=== PATIENT | female | born 1970 | race Caucasian/White ===

== ENCOUNTER 2017-09-19 05:10 | Inpatient (IN) | payer BC, OTHER ==
[2017-09-15 18:04] VITALS: BMI 25.7
[2017-09-19] MEDS ORDERED: ONDANSETRON 4 MG/2 ML VIAL IVPUSH PRN ×2 (09:11→11:36)
--- NOTE | 2017-09-19 09:16 | HP ---
Past Medical History - Primary Care Physician PCP:: Singh Auguste - Admission Chief Complaint: irregular vaginal bleeding, pelvic pain, adenomyosis History of Present Illness: 47 yo f with hx of irregular vaginal bleeding amd pelvic pain and discomfort. treated previously with progestrone and EM ablation witjh no relif , still c/o vaginal spotting and bleeding during the month. sono consistant with adenomyosis , admitted for supracervical abdominal hysterectomy with bilateral salpingectomy. rba discussed with patient History Source: Patient Limitations to Obtaining History: No Limitations - Past Medical History ...: 2 ...Para: 2 - Past Surgical History Past Surgical History: Yes: Hx Myomectomy: No Hx Transabdominal Cerclage: No Additional Surgical History: hv of transvaginal sling for urinary incontinence - Smoking History Smoking history: Never smoked - Alcohol/Substance Use Hx Alcohol Use: Yes (SOCIALLY) - Social History Usual Living Arrangement: Yes: With Spouse History of Recent Travel: No Home Medications - Allergies Allergies/Adverse Reactions: Allergies Allergy/AdvReac Type Severity Reaction Status Date / Time Sulfa (Sulfonamide Allergy Intermediate Verified 09/19/17 08:02 Antibiotics) - Home Medications Home Medications: Ambulatory Orders NK [No Known Home Medication] 09/15/17 Review of Systems - Review of Systems Constitutional: reports: No Symptoms Eyes: reports: No Symptoms HENT: reports: No Symptoms Cardiovascular: reports: No Symptoms Respiratory: reports: No Symptoms Gastrointestinal: reports: Abdominal Pain, Bloating Genitourinary: reports: Vaginal Bleeding Breasts: reports: No Symptoms Reported Musculoskeletal: reports: No Symptoms Integumentary: reports: No Symptoms Neurological: reports: No Symptoms Endocrine: reports: No Symptoms Hematology/Lymphatic: reports: Excessive Bleeding Psychiatric: reports: No Symptoms Physical Exam-YARD SUPERVISOR Vital Signs: Vital Signs Temperature 98.4 F 09/19/17 07:59 Pulse Rate 68 09/19/17 07:59 Respiratory Rate 16 09/19/17 07:59 Blood Pressure 119/85 09/19/17 07:59 O2 Sat by Pulse Oximetry (%) Constitutional: Yes: Well Nourished, No Distress, Calm Eyes: Yes: WNL, Conjunctiva Clear, EOM Intact HENT: Yes: WNL, Atraumatic, Normocephalic Neck: Yes: WNL, Supple, Trachea Midline Cardiovascular: Yes: WNL, Regular Rate and Rhythm Respiratory: Yes: WNL, Regular, CTA Bilaterally Gastrointestinal: Yes: WNL ...Rectal Exam: Yes: WNL Renal/: Yes: WNL Pelvis: Yes: WNL External Genitalia: Yes: Normal Vaginal Exam: Yes: Normal Cervix: Yes: Normal Uterus: Yes: Enlarged (10 weeks), Tender Adnexa: Not Palpable: Left, Right Breast(s): Yes: WNL Musculoskeletal: Yes: WNL Extremities: Yes: WNL Edema: Yes Integumentary: Yes: WNL Neurological: Yes: WNL, Alert, Oriented ...Motor Strength: WNL Psychiatric: Yes: WNL, Alert, Oriented Problem List - Problem (1) Pelvic pain Code(s): R10.2 - PELVIC AND PERINEAL PAIN (2) Metrorrhagia Code(s): N92.1 - EXCESSIVE AND FREQUENT MENSTRUATION WITH IRREGULAR CYCLE (3) Adenomyosis Code(s): N80.0 - ENDOMETRIOSIS OF UTERUS Assessment/Plan supracervical abdominal hysterectomy, bilateral salpingectomy, possible oophorectomy
[2017-09-19] MEDS ORDERED: ONDANSETRON 4 MG/2 ML VIAL ONE (09:52)
[2017-09-19] MEDS ORDERED: LIDOCAINE HCL 2% JELLY (5 ML/TUBE) ONE (09:52)
[2017-09-19] MEDS ORDERED: KETOROLAC TROMETHAMINE 30 MG/1 ML VIAL ONE (09:52)
[2017-09-19] MEDS ORDERED: LIDOCAINE HCL/PF 2% SDV 5ML VIAL ONE (09:52)
[2017-09-19] MEDS ORDERED: DEXAMETHASONE SOD PHOSPHATE 4 MG/1 ML VIAL ONE (09:52)
[2017-09-19] MEDS ORDERED: ceFAZolin SODIUM 1 GM VIAL IVPB ONE (09:56)
[2017-09-19] MEDS ORDERED: ceFAZolin SODIUM 1 GM VIAL ONE (09:58)
[2017-09-19] MEDS ORDERED: CEFAZOLIN 1 GM/D5W 50 ML IVPB SCH (10:00)
[2017-09-19] MEDS ORDERED: ePHEDrine SULFATE 50 MG/1 ML AMPULE ONE (10:17)
[2017-09-19] MEDS ORDERED: NEOSTIGMINE METHYLSULFATE 0.5 MG/ML - 10 ML MDV ONE (11:03)
[2017-09-19] MEDS ORDERED: IBUPROFEN 800 MG/8 ML IJ IVPB PRN (11:36)
[2017-09-19] MEDS ORDERED: ELECTROLYTE-148 SOLN 1,000 ML IV SCH (11:45)
[2017-09-19] MEDS ORDERED: HYDROmorphone HCL CARPU-JECT 2 MG/1 ML DISP.SYRIN ONE (12:43)
[2017-09-19] MEDS: HYDROmorphone HCL CARPU-JECT 1 MG/1 ML DISP.SYRIN IVPUSH PRN ×2 (12:50→13:00)
--- NOTE | 2017-09-19 14:14 | OP ---
DATE OF OPERATION: 09/19/2017 PREOPERATIVE DIAGNOSES: Pelvic pain, metrorrhagia, and adenomyosis. POSTOPERATIVE DIAGNOSES: Pelvic pain, metrorrhagia, and adenomyosis. PROCEDURE: Supracervical abdominal hysterectomy, bilateral salpingectomy. SURGEON: Singh Auguste MD SYSTEMS TECHNOLOGIST: ESTIMATED BLOOD LOSS: 200 mL DESCRIPTION OF OPERATION: Patient was taken to the operating room, had adequate general anesthesia. Abdomen and perineum were prepped and draped x2. The abdominal skin incision was made. Abdominal wall was cut layer by layer. Anterior peritoneum was exposed and incised. Upon entering the abdominal cavity, lower uterine segment was identified and uterovesical fold of the peritoneum established and bladder was pushed down. The uterus was enlarged, approximately 10-12 weeks' size. Both tubes and ovaries were normal. No cul-de-sac adhesions. At this time, bowels were packed away with LigaSure cautery. Both round ligaments were grasped, cauterized, and cut, and bladder was further pushed down. Then, a hole was made into the broad ligament, and then, the tubo-ovarian pedicles were grasped with the bipolar LigaSure cautery, cauterized, and cut. Then, the tube with LigaSure cautery along the mesosalpinx was cauterized and cut, and both tubes were removed. There was evidence of previous tubal ligation with the tubes. Then, uterine artery was identified bilaterally, clamped with Jon clamp, cut, and the clamp replaced with 0 Vicryl suture bilaterally. At this time, paracervical area was clamped with Jon clamp and cut, and the clamp replaced with a 0 Vicryl suture. Then, the specimen was removed above the cervix, and then, the cervix was sutured with interrupted suture of 2-0 Vicryl. Then, there was some bleeding oozing from underneath the bladder flap. These areas were identified, clamped with a right angle clamp, and tied, and hemostasis was established. Then, cervix was sutured with interrupted suture of 0 Vicryl, and hemostasis was established. Reperitonealization of the pelvic floor was done, and the pelvic cavity several times irrigated. No active bleeding was seen. All the lap pad, sponge, and instrument counts were correct. Then, the peritoneum was closed with 0 Vicryl continuous suture. Muscles were brought together with interrupted suture of 0 Vicryl. Fascia was closed with 0 Vicryl continuous suture, subcutaneous fat with interrupted suture of 0 Vicryl, and the skin was closed with 4-0 Biosyn subcuticular suture. Patient tolerated procedure well, left the OR in good condition. Kevin [id number]
[2017-09-19] MEDS: oxyCODONE HCL 5 MG TABLET PO PRN (18:45)
[2017-09-19] MEDS: CEFAZOLIN 1 GM/D5W 50 ML IVPB SCH (20:04)
[2017-09-20] MEDS: oxyCODONE HCL 5 MG TABLET PO PRN ×3 (01:55→13:31)
[2017-09-20] MEDS: IBUPROFEN 600 MG TABLET (FP) PO PRN ×4 (01:55→21:31)
[2017-09-20 08:41] LABS: MCH 31.5 pg (25.7-33.7); MCHC 33.8 g/dl (32.0-36.0); MEAN CELL VOLUME 93.3 fl (80-96); MEAN PLT VOLUME 8.7 fl (7.5-11.1); PLATELET COUNT 153 K/MM3 (134-434); RDW 12.3 % (11.6-15.6)
--- NOTE | 2017-09-20 08:50 | PN ---
Progress Note (short form) - Note Progress Note: pod1 has low abdominal pain CBC, BMP 09/20/17 07:35 Last Vital Signs Temp Pulse Resp BP Pulse Ox 97.8 F 75 18 104/50 100 09/20/17 02:00 09/20/17 02:00 09/20/17 02:00 09/20/17 02:00 09/19/17 14:04 abdomen soft, no distension , no cva incision dry, clean no calf tenderness no vaginal bleeding Knox clear urine plan ambulate, advance diet pain management Problem List - Problems (1) Pelvic pain Code(s): R10.2 - PELVIC AND PERINEAL PAIN (2) Metrorrhagia Code(s): N92.1 - EXCESSIVE AND FREQUENT MENSTRUATION WITH IRREGULAR CYCLE (3) Adenomyosis Code(s): N80.0 - ENDOMETRIOSIS OF UTERUS
[2017-09-20] MEDS ORDERED: PANTOPRAZOLE 40 MG TABLET (FP) PO ONE (08:54)
[2017-09-20] MEDS: SIMETHICONE 80 MG TAB.CHEW (FP) PO PRN ×3 (09:08→18:29)
[2017-09-20] MEDS: CEFAZOLIN 1 GM/D5W 50 ML IVPB SCH (09:09)
[2017-09-20] MEDS: ENOXAPARIN NA (PORCINE) 40 MG/0.4 ML DISP.SYRIN SQ SCH (09:09)
--- NOTE | 2017-09-20 11:00 | PN ---
Progress Note (short form) - Note Progress Note: Post op day#1.S/P CHILANGO with BSO under GA with bilateral TAP block uneventful Patient stable and was on Dilaudid DOUGH MIXER OPERATOR for pain management.Pain score 3-4/10 so DOUGH MIXER OPERATOR is DC and patient put on PRN pain medication.No any anesthesia related problem.Patient DC from the anesthesia care.
--- NOTE | 2017-09-20 16:04 | PATH ---
Surgical Pathology Report Patient Name: GERTRUDE HURT [facility]. Rec. #: [id number] /Age/Gender: 1970 (Age: 47) / F Account: [id number] Location: [facility] OBS/GENERAL EDUCATION INSTRUCTOR Taken: 09/19/2017 Received: 09/19/2017 Reported: 09/20/2017 Physicians: Singh Auguste M.D. Specimen(s) Received UTERUS AND BILATERAL FALLOPIAN TUBES Clinical History Irregular vaginal bleeding, adenomyosis, pelvic pain Final Diagnosis UTERUS AND BILATERAL FALLOPIAN TUBES, SUPRACERVICAL HYSTERECTOMY AND BILATERAL SALPINGECTOMY: UTERUS, 222 GRAMS, WITH ADENOMYOSIS AND PROLIFERATIVE ENDOMETRIUM. BENIGN BILATERAL FALLOPIAN TUBES STATUS POST TUBAL LIGATION PRESENT. Comment: Also see [id number]. Electronically Signed Osvaldo Mendoza M.D. Gross Description Received in formalin labeled "uterus and bilateral fallopian tubes," is a 222 g supracervically amputated uterus with bilateral fallopian tubes attached. The specimen measures 10.5 cm from superior to inferior, 7.4 cm from left to right and 5.8 cm from anterior to posterior. The serosa is cerna-pink with focal small subserosal nodules. The endometrial cavity measures 7.4 cm in length and 3.7 cm from cornu to cornu. The endometrium is cerna-red and averages 0.3 cm in thickness. The myometrium is cerna-pink with whorled architecture and multifocal pinpoint hemorrhagic cysts, consistent with adenomyosis. The myometrium measures up to 2.8 cm in thickness. The left fimbriated fallopian tube appears previously ligated and measures 6 cm in length. The outer surface is nickerson purple with a 1.0 cm in greatest dimension paratubal cyst attached to the fimbria. Sectioning reveals a proximally dilated lumen. The right fimbriated fallopian tube measures 6 cm in length and appears previously ligated. The outer surface is nickerson purple and smooth. Sectioning reveals a proximally dilated lumen. Copper Roller Handler Printing sections are submitted in 10 cassettes as follows: 1-cervical stump margin of resection; 0-5-loudjhez endomyometrium; 7-9-oojycbrqb endomyometrium; 6-subserosal nodules; 7-left fallopian tube fimbria; 8-cross sections of left fallopian tube; 9-right fallopian tube fimbria; 10-cross sections of right fallopian tube. 09/19/201709/19/2017
[2017-09-20] MEDS ORDERED: BISACODYL 5 MG TABLET.DR (FP) PO ONE (16:15)
[2017-09-20] MEDS: ACETAMINOPHEN 325 MG TABLET (FP) PO PRN (18:29)
[2017-09-21] MEDS: SIMETHICONE 80 MG TAB.CHEW (FP) PO PRN ×4 (01:20→20:36)
[2017-09-21] MEDS: oxyCODONE HCL 5 MG TABLET PO PRN ×3 (01:20→20:36)
[2017-09-21 01:42] LABS: URINE APPEARANCE CLEAR; URINE BILIRUBIN NEGATIVE (NEGATIVE); URINE BLOOD 2+ (NEGATIVE); URINE COLOR STRAW; URINE GLUCOSE (UA) NEGATIVE (NEGATIVE); URINE KETONE NEGATIVE (NEGATIVE); URINE NITRITE NEGATIVE (NEGATIVE); URINE PROTEIN NEGATIVE (NEGATIVE); URINE UROBILINOGEN NEGATIVE mg/dL (0.2-1.0)
[2017-09-21 01:47] LABS: URINE MUCUS RARE; URINE WBC 0-2 /hpf (3-5)
[2017-09-21] MEDS: CEFTRIAXONE 1 G/50 ML PREMIX 50 ML IVPB SCH (04:00)
[2017-09-21] MEDS: ACETAMINOPHEN 325 MG TABLET (FP) PO PRN ×3 (08:22→20:39)
[2017-09-21] MEDS: IBUPROFEN 600 MG TABLET (FP) PO PRN (08:23)
[2017-09-21 08:53] LABS: URINE LEUK ESTERASE Negative (NEGATIVE)
[2017-09-21] MEDS: ENOXAPARIN NA (PORCINE) 40 MG/0.4 ML DISP.SYRIN SQ SCH (10:18)
--- NOTE | 2017-09-21 19:11 | PN ---
Progress Note (short form) - Note Progress Note: had frequencyurgency last night ,could not sleep , jimenez was inserted, clear urine 200 cc had gas pain , received enema . passing gas now, had BM CBC, BMP 09/20/17 07:35 Last Vital Signs Temp Pulse Resp BP Pulse Ox 97.8 F 74 20 121/69 100 09/21/17 17:43 09/21/17 17:43 09/21/17 17:43 09/21/17 17:43 09/19/17 14:04 abdomen soft, mild distension, no cva, incision dry, clean ,healing well no calf tenderness urinary frequency , most likely related to post op Jimenez cath irritation of bladder, and intraop bladder manipulation, r/o uti plan keep Jimenez for 24 hr , then remove , revaluate if able to void regular d/c home in am Problem List - Problems (1) Pelvic pain Code(s): R10.2 - PELVIC AND PERINEAL PAIN (2) Metrorrhagia Code(s): N92.1 - EXCESSIVE AND FREQUENT MENSTRUATION WITH IRREGULAR CYCLE (3) Adenomyosis Code(s): N80.0 - ENDOMETRIOSIS OF UTERUS
[2017-09-22] MEDS: SIMETHICONE 80 MG TAB.CHEW (FP) PO PRN (04:28)
[2017-09-22] MEDS: oxyCODONE HCL 5 MG TABLET PO PRN (04:29)
[2017-09-22] MEDS: ACETAMINOPHEN 325 MG TABLET (FP) PO PRN ×2 (04:31→10:24)
[2017-09-22] MEDS: CEFTRIAXONE 1 G/50 ML PREMIX 50 ML IVPB SCH (05:46)
--- NOTE | 2017-09-22 08:35 | DS ---
Physical Exam-CORRECTIONAL NURSE Vital Signs: Vital Signs Temperature 98.8 F 09/21/17 22:00 Pulse Rate 86 09/21/17 22:00 Respiratory Rate 18 09/21/17 22:00 Blood Pressure 134/83 09/21/17 22:00 O2 Sat by Pulse Oximetry (%) 100 09/19/17 14:04 Constitutional: Yes: Well Nourished, No Distress, Calm Eyes: Yes: WNL, Conjunctiva Clear, EOM Intact HENT: Yes: WNL, Atraumatic, Normocephalic Neck: Yes: WNL, Supple, Trachea Midline Cardiovascular: Yes: WNL, Regular Rate and Rhythm Respiratory: Yes: WNL, Regular, CTA Bilaterally Gastrointestinal: Yes: WNL ...Rectal Exam: Yes: WNL Renal/: Yes: WNL Breast(s): Yes: WNL Musculoskeletal: Yes: WNL Extremities: Yes: WNL Integumentary: Yes: WNL Wound/Incision: Yes: Clean/Dry, Well Approximated, Sutures Intact Neurological: Yes: WNL, Alert, Oriented ...Motor Strength: WNL Psychiatric: Yes: WNL, Alert, Oriented Labs: CBC, BMP 09/20/17 07:35 Discharge Summary Reason For Visit: ADERIOMYOSIS/MENOMETRIOMAGIA/FIBROID UTERUS Current Active Problems Adenomyosis (Acute) Metrorrhagia (Acute) Pelvic pain (Acute) Procedures: Principal: supracervical adbominal hysterectomy,, bilateral salpingectomy Hospital Course: post op urinary retention. resolved spontaneously Condition: Good - Instructions Diet, Activity, Other Instructions: regular diet,no intercourse, follow up office 2 weeks, if pain, fever, bleeding call md Referrals: Singh Auguste MD [Staff Physician] - Disposition: HOME - Home Medications Comprehensive Discharge Medication List: Ambulatory Orders Ibuprofen [Motrin -] 600 mg PO QID #28 tablet 09/21/17
--- NOTE | 2017-09-22 08:46 | PN ---
Progress Note (short form) - Note Progress Note: c/o mild incisional pain, Knox out CBC, BMP 09/20/17 07:35 Last Vital Signs Temp Pulse Resp BP Pulse Ox 98.8 F 86 18 134/83 100 09/21/17 22:00 09/21/17 22:00 09/21/17 22:00 09/21/17 22:00 09/19/17 14:04 abdomen soft, no distension, no cva incision dry, clean bladder not felt no vaginal bleeding or discharge plan if able to void today , d/c home, follow up office 2 weeks Problem List - Problems (1) Pelvic pain Code(s): R10.2 - PELVIC AND PERINEAL PAIN (2) Metrorrhagia Code(s): N92.1 - EXCESSIVE AND FREQUENT MENSTRUATION WITH IRREGULAR CYCLE (3) Adenomyosis Code(s): N80.0 - ENDOMETRIOSIS OF UTERUS
[2017-09-22] MEDS: ENOXAPARIN NA (PORCINE) 40 MG/0.4 ML DISP.SYRIN SQ SCH (09:07)
[2017-09-22] MEDS: IBUPROFEN 600 MG TABLET (FP) PO PRN (10:24)
[2017-09-22 11:12] VITALS: BP 106/65; PULSE 73; TEMP 97.8
== END 2017-09-22 13:50 | disposition home or self-care (01) | DRG 743 ==
LOC: JSAMEDAYSX 05:10 → UNDOADMIN 05:10 → JSAMEDAYSX 05:33 → J3W 13:51
PROVIDERS: ADMIT Obstetrics & Gynecology; ATTEND Obstetrics & Gynecology
PROC: 0UT70ZZ Resection of Bilateral Fallopian Tubes, Open Approach (ICD-10-PCS; 2017-09-19)
PROC: 0UT90ZL Resection of Uterus, Supracervical, Open Approach (ICD-10-PCS; principal; 2017-09-19 09:00)
DX: N80.0 Endometriosis of uterus (principal)
CPT/HCPCS: 36415; 81003; 81015; 84703; 85027; 87086; 88307-TC; 94010; 94760